=== PATIENT | female | born 1950 | race Caucasian/White ===

== ENCOUNTER 2016-06-14 09:18 | Emergency (ER) | payer MEDICARE, OTHER ==
[2016-06-14 09:29] VITALS: TEMP 97.3
[2016-06-14] MEDS ORDERED: SODIUM CHLORIDE 0.9% 1,000 ML IV STA (09:35)
[2016-06-14] MEDS ORDERED: SODIUM CHLORIDE 0.9% 500 ML IV STA (09:35)
--- NOTE | 2016-06-14 09:52 | ED ---
General Adult HPI - General Chief complaint: Neuro Symptoms/Deficit Stated complaint: knee pain Time Seen by Provider: 06/14/16 09:35 Source: patient, RN notes reviewed, old records reviewed Mode of arrival: ambulatory Limitations: no limitations - History of Present Illness Initial comments: This is a 65-year-old female ER for evaluation of dizziness. Left ear pain. Patient has dizziness and weakness and ataxia. She does have history of high cholesterol no history of stroke or heart attack, is coming in today for reevaluation zone this dizziness ataxia and weakness that she has been feeling. She denies trauma or headache. No known fevers. No sick contacts or travel history. Patient's symptoms at this time is 0. She has no symptoms. She has no complaints. She is concerned about the symptoms that she had a week ago. When she had these symptoms then patient was seen at [address] mili Livingston for evaluation by neurosurgery. She was cleared for further evaluation and outpatient basis. She was told that time she has no compressive cauda equina, no stroke. Patient again at this time has no complaints - Related Data Home Medications Medication Instructions Recorded Confirmed Lovastatin [Mevacor] 80 mg PO HS 05/03/14 06/14/16 Mirtazapine 45 mg PO HS 05/03/14 06/14/16 lamoTRIgine 200 mg PO BID 05/03/14 06/14/16 traZODone HCL [Desyrel] 50 mg PO HS 05/03/14 06/14/16 Allergies Allergy/AdvReac Type Severity Reaction Status Date / Time Penicillins Allergy Anaphylaxis Verified 06/14/16 09:30 coconut oil AdvReac Intermediate Swelling Verified 06/14/16 09:30 Fish Containing Products AdvReac Rash/Hives Verified 06/14/16 09:30 CATS Allergy Itching Uncoded 06/14/16 09:30 Review of Systems ROS Statement: Those systems with pertinent positive or pertinent negative responses have been documented in the HPI. ROS Other: All systems not noted in ROS Statement are negative. Past Medical History Past Medical History: Hyperlipidemia History of Any Multi-Drug Resistant Organisms: None Reported Past Surgical History: Hysterectomy, Orthopedic Surgery Additional Past Surgical History / Comment(s): hyst in 1991, left foot surgery Past Anesthesia/Blood Transfusion Reactions: No Reported Reaction Past Psychological History: Anxiety, Bipolar, Depression Smoking Status: Current every day smoker Past Alcohol Use History: None Reported Past Drug Use History: None Reported - Past Family History Mother Family Medical History: Congestive Heart Failure (CHF) Additional Family Medical History / Comment(s): Brother(s) Family Medical History: Cancer Additional Family Medical History / Comment(s): .....colon cancer General Exam - General Exam Comments Initial Comments: MH of 0 Limitations: no limitations General appearance: alert, in no apparent distress Head exam: Present: atraumatic, normocephalic, normal inspection Eye exam: Present: normal appearance, PERRL, EOMI. Absent: scleral icterus, conjunctival injection, periorbital swelling ENT exam: Present: normal exam, mucous membranes moist Neck exam: Present: normal inspection. Absent: tenderness, meningismus, lymphadenopathy Respiratory exam: Present: normal lung sounds bilaterally. Absent: respiratory distress, wheezes, rales, rhonchi, stridor Cardiovascular Exam: Present: regular rate, normal rhythm, normal heart sounds. Absent: systolic murmur, diastolic murmur, rubs, gallop, clicks GI/Abdominal exam: Present: soft, normal bowel sounds. Absent: distended, tenderness, guarding, rebound, rigid Extremities exam: Present: normal inspection, full ROM, normal capillary refill. Absent: tenderness, pedal edema, joint swelling, calf tenderness Back exam: Present: normal inspection Neurological exam: Present: alert, oriented X3, CN II-XII intact Psychiatric exam: Present: normal affect, normal mood Skin exam: Present: warm, dry, intact, normal color. Absent: rash Course Vital Signs 06/14/16 09:21 Temperature 97.3 F L Pulse Rate 100 Respiratory 18 Rate Blood Pressure 131/62 O2 Sat by Pulse 96 Oximetry - Reevaluation(s) Reevaluation #1: 06/14/16 10:30 Patient is able to ambulate without difficulty, no incontinence, no loss of bowel or bladder EKG Findings - EKG Comments: EKG Findings:: EKG shows normal sinus rhythm rate of 90, CT 144, QRS 84, QTc 464 Medical Decision Making - Medical Decision Making 65 female year with nonspecific neurological complaints. Patient has no complaints at this time, encouraged to follow up with outpatient family physician as directed Disposition Clinical Impression: Right leg paresthesias Disposition: HOME SELF-CARE Condition: Good Instructions: Paresthesia (ED), Lumbar Radiculopathy (ED) Referrals: Benny Rowland MD [Primary Care Provider] - 1-2 days
[2016-06-14 10:54] VITALS: BP 112/65; PULSE 86; RESP 15
== END 2016-06-14 10:54 | disposition home or self-care (01) ==
LOC: EC 09:18
DX: R20.2 Paresthesia of skin (principal); E78.5 Hyperlipidemia, unspecified; F31.9 Bipolar disorder, unspecified; F41.9 Anxiety disorder, unspecified; F17.200 Nicotine dependence, unspecified, uncomplicated; Z79.899 Other long term (current) drug therapy; Z88.0 Allergy status to penicillin
CPT/HCPCS: 93005; 99284